=== PATIENT | male | born 1945 | race Caucasian/White ===

== ENCOUNTER 2020-06-11 15:13 | Inpatient (IN) | payer OTHER ==
[2020-06-11] MEDS ORDERED: predniSONE 20 MG TAB ONE (23:03)
[2020-06-11] MEDS ORDERED: IPRATROPIUM BROM 0.5MG/2.5ML ONE (23:03)
[2020-06-11] MEDS ORDERED: ALBUTEROL 2.5 MG/3 ML NEB SOL ONE (23:04)
--- NOTE | 2020-06-12 00:11 | ER ---
Nurse's Notes [facility] Name: Mal Guaman Age: 75 yrs Sex: Male : 1945 Arrival Date: 06/11/2020 Time: 15:19 Bed 13 Private MD: Diagnosis: Chronic obstructive pulmonary disease, unspecified;Congestive heart failure Presentation: 06/11 15:45 Chief complaint: EMS states: Electricity went out last night. Hospital bed was stuck in ss flat position. Pt c/o increased shortness of breath and O2 tank was almost out. Pt feels better after sitting up. Coronavirus screen: Client denies travel out of the [place] in the last 14 days. Ebola Screen: Patient denies exposure to infectious person. Patient denies travel to an Ebola-affected area in the 21 days before illness onset. Initial Sepsis Screen: Does the patient have a suspected source of infection? No. Patient's initial sepsis screen is negative. Risk Assessment: Do you want to hurt yourself or someone else? Patient reports no desire to harm self or others. Onset of symptoms was June 11, 2020. 15:45 Method Of Arrival: EMS: [facility] 15:45 Acuity: JOCY 3 ss Historical: - Allergies: 15:49 No Known Allergies; ss - PMHx: 15:49 COPD; CHF; Hypertension; ss - Immunization history:: Adult Immunizations up to date. - Social history:: Smoking status: Patient/guardian denies using tobacco, the patient reports quitting approximately 9 years ago. Screenin:00 Abuse screen: Denies threats or abuse. Nutritional screening: No deficits noted. em Tuberculosis screening: No symptoms or risk factors identified. Fall Risk None identified. Assessment: 21:00 Reassessment: pt ran out of O2 in the lobby, replaced O2 tank, noted 82% RA, pt reports em feeling better with O2 at 3 LPM, 99% SPO2. 21:25 General: Appears in no apparent distress. comfortable, Behavior is calm, cooperative, em appropriate for age. Pain: Denies pain. Neuro: Level of Consciousness is awake, alert, obeys commands, Oriented to person, place, time, situation. Cardiovascular: Capillary refill < 3 seconds Patient's skin is warm and dry. Respiratory: Reports shortness of breath on exertion Airway is patent Respiratory effort is even, unlabored, Respiratory pattern is regular, symmetrical, reports he wears O2 daily, denies chest pain. Derm: Skin is intact, is healthy with good turgor, Skin is pink, warm \T\ dry. Musculoskeletal: Range of motion: intact in all extremities. 23:00 Reassessment: Patient appears in no apparent distress at this time. Patient and/or em family updated on plan of care and expected duration. Pain level reassessed. Patient is alert, oriented x 3, equal unlabored respirations, skin warm/dry/pink. Vital Signs: 15:49 BP 157 / 66; Pulse 93; Resp 24; Temp 97.2(TE); Pulse Ox 100% on 3 lpm NC; Weight 66.68 em kg; Height 5 ft. 6 in. (167.64 cm); Pain 0/10; 21:00 Pulse Ox 82% on R/A; em 06/12 00:45 BP 119 / 54; Pulse 84; Resp 18; Pulse Ox 100% on 3 lpm NC; em 06/11 15:49 Body Mass Index 23.73 (66.68 kg, 167.64 cm) em ED Course: 06/11 15:19 Patient arrived in ED. sv 15:47 Triage completed. ss 15:49 Arm band placed on right wrist. ss 21:00 Patient has correct armband on for positive identification. em 21:29 Julian Barragan NP is PHCP. pm1 21:29 Rashel Kimbrough MD is Attending Physician. pm1 22:20 Jsoué Rowley, MELANIE is Primary Nurse. em 22:21 Chest Single View XRAY In Process Unspecified. EDMS 23:00 COVID swab sent to lab. sg 23:50 Initial lab(s) drawn, by wa, sent to lab. Inserted saline lock: 22 gauge in left em antecubital area, using aseptic technique. Blood collected. 06/12 00:10 Kar Mcgarry DO is Hospitalizing Provider. pm1 01:32 No provider procedures requiring assistance completed. Patient admitted, IV remains in em place. Administered Medications: 06/11 22:59 Drug: Albuterol - atroVENT (3:1) (2.5 mg - 0.5 mg) 3 ml Route: Nebulizer; 06/12 01:24 Follow up: Response: No adverse reaction em 06/11 22:59 Drug: predniSONE 60 mg Route: PO; 06/12 01:24 Follow up: Response: No adverse reaction em Outcome: 00:10 Decision to Hospitalize by Provider. pm1 01:32 Admitted to Med/surg accompanied by nurse, via wheelchair, room 217, with oxygen, with em chart, Report called to MELANIE Silva 01:32 Condition: good 01:32 Instructed on the need for admit, Demonstrated understanding of instructions. 01:35 Patient left the ED. Signatures: Dispatcher [employer] Dayanna Verma RN MELANIE Liban Harrell RN RN sg Josué Rowley RN RN em Sima Darden RN RN ss Julian Barragan, [employer]LLAND CARPET INSTALLER HELPER pm1 Corrections: (The following items were deleted from the chart) 06/11 23:29 15:49 BP 157 / 66; Pulse 93bpm; Resp 24bpm; Pulse Ox 100% RA; Temp 97.2F Temporal; em 66.68 kg; Height 5 ft. 6 in.; BMI: 23.7; Pain 0/10; ss
--- NOTE | 2020-06-12 00:11 | EDPHYS ---
Physician Documentation [facility] Name: Mal Guaman Age: 75 yrs Sex: Male : 1945 Arrival Date: 06/11/2020 Time: 15:19 Bed 13 Private MD: ED Physician Rashel Kimbrough HPI: 06/11 22:10 This 75 yrs old Male presents to ER via EMS with complaints of needs O2. pm1 22:10 Onset: The symptoms/episode began/occurred last night. Associated signs and symptoms: pm1 Pertinent negatives: chest pain, cough, fever. Patient is oxygen dependent COPD, CHF. Patient ran out of oxygen last night and was not able to use his CPAP with nebulizer due loss of electricity. Patient presenting with shortness of breath that has returned to his baseline with supplemental oxygen in the ER. He reports that the earliest he will be able to get oxygen is 4-5 days per supply company. Historical: - Allergies: 15:49 No Known Allergies; ss - PMHx: 15:49 COPD; CHF; Hypertension; ss - Immunization history:: Adult Immunizations up to date. - Social history:: Smoking status: Patient/guardian denies using tobacco, the patient reports quitting approximately 9 years ago. ROS: 22:10 Constitutional: Negative for fever, chills, and weight loss. pm1 22:10 Abdomen/GI: Negative for abdominal pain, nausea, vomiting, diarrhea, and constipation, Back: Negative for injury and pain, MS/Extremity: Negative for injury and deformity, Skin: Negative for injury, rash, and discoloration. 22:10 Neuro: Negative for headache, weakness, numbness, tingling, and seizure. 22:10 Cardiovascular: Negative for chest pain, palpitations. 22:10 Respiratory: Positive for cough, with no reported sputum, shortness of breath. Exam: 22:10 Constitutional: This is a well developed, well nourished patient who is awake, alert, pm1 and in no acute distress. Head/Face: Normocephalic, atraumatic. 22:10 Back: No spinal tenderness. No costovertebral tenderness. Full range of motion. Skin: Warm, dry with normal turgor. Normal color with no rashes, no lesions, and no evidence of cellulitis. MS/ Extremity: Pulses equal, no cyanosis. Neurovascular intact. Full, normal range of motion. 22:10 Cardiovascular: Exam negative for acute changes, Rate: normal, Rhythm: regular, Pulses: no pulse deficits are appreciated. 22:10 Respiratory: Exam negative for acute changes, respiratory distress, rhonchi, wheezing. 22:10 Neuro: Exam negative for acute changes, Orientation: is normal, Mentation: is normal, Motor: is normal, moves all fours. Vital Signs: 15:49 BP 157 / 66; Pulse 93; Resp 24; Temp 97.2(TE); Pulse Ox 100% on 3 lpm NC; Weight 66.68 em kg; Height 5 ft. 6 in. (167.64 cm); Pain 0/10; 21:00 Pulse Ox 82% on R/A; em 06/12 00:45 BP 119 / 54; Pulse 84; Resp 18; Pulse Ox 100% on 3 lpm NC; em 06/11 15:49 Body Mass Index 23.73 (66.68 kg, 167.64 cm) em MDM: 06/11 21:47 Patient medically screened. pm1 22:10 Data reviewed: vital signs. Data interpreted: Pulse oximetry: on room air is 100 %. pm1 Interpretation: normal. Counseling: I had a detailed discussion with the patient and/or guardian regarding: the historical points, exam findings, and any diagnostic results supporting the discharge/admit diagnosis, the need for further work-up and treatment in the hospital, Patient oxygen dependent and will not be able to get oxygen from his suppliers for the next 4-5 days due to weather. 06/11 22:02 Order name: CBC with Diff pm1 06/11 22:02 Order name: BMP; Complete Time: 00:57 pm1 06/11 22:02 Order name: Chest Single View XRAY pm1 06/11 22:03 Order name: CBC with Automated Diff; Complete Time: 00:57 EDMS 06/12 00:03 Order name: SARS-COV-2 RT PCR; Complete Time: 00:57 EDMS 06/12 00:36 Order name: Misc. Order: obtain and document room air sats please; Complete Time: 00:48 la1 Administered Medications: 22:59 Drug: Albuterol - atroVENT (3:1) (2.5 mg - 0.5 mg) 3 ml Route: Nebulizer; 06/12 01:24 Follow up: Response: No adverse reaction em 06/11 22:59 Drug: predniSONE 60 mg Route: PO; 06/12 01:24 Follow up: Response: No adverse reaction em Disposition: 02:01 Co-signature as Attending Physician, Rashel Kimbrough MD I agree with the assessment and kdr plan of care. Disposition: 06/12/20 00:10 Hospitalization ordered by Kar Mcgarry for Observation. Preliminary diagnosis are Chronic obstructive pulmonary disease, unspecified, Congestive heart failure. - Bed requested for Telemetry/MedSurg (observation). - Status is Observation. sg - Condition is Stable. - Problem is new. - Symptoms have improved. Signatures: Dispatcher [employer] EDSD Kemi Pritchett RN RN Liban Harrell RN RN sg Rittger, Kevin, MD MD [facility] Sima Darden RN RN ss Severiano Riddle, SECONDARY TEACHER-C SECONDARY TEACHER-Cla1 Julian Barragan, MACHINE TECHNICIAN MACHINE TECHNICIAN pm1 Josué Rowley RN em Corrections: (The following items were deleted from the chart) 06/11 23:10 22:46 CORONAVIRUS+MR.LAB.BRZ ordered. [facility] EDSD 06/12 00:25 00:10 Hospitalization Ordered by Kar Mcgarry DO for Observation. Preliminary mw diagnosis is Chronic obstructive pulmonary disease, unspecified; Congestive heart failure. Bed requested for Telemetry/MedSurg (observation). Status is Observation. Condition is Stable. Problem is new. Symptoms have improved. pm1 01:35 00:25 06/12/2020 00:10 Hospitalization Ordered by Kar Mcgarry DO for Observation. sg Preliminary diagnosis is Chronic obstructive pulmonary disease, unspecified; Congestive heart failure. Bed requested for Telemetry/MedSurg (observation). Status is Observation. Condition is Stable. Problem is new. Symptoms have improved. mw
[2020-06-12 00:15] LABS: Absolute Lymphocytes (CBC) 1.1 K/uL (0.7-4.9); Basophils % 0.8 % (0-1.3); Hematocrit 36.7 % (39.6-49.0); MPV 8.5 fL (7.6-11.3); RBC Red Blood Cell Count 4.36 M/uL (4.33-5.43)
[2020-06-12 00:24] LABS: Potassium 5.5 mmol/L (3.5-5.1)
--- NOTE | 2020-06-12 00:49 | P.HP ---
Certification for Inpatient Patient admitted to: Observation With expected LOS: <2 Midnights Patient will require the following post-hospital care: None Practitioner: I am a practitioner with admitting privileges, knowledge of patient current condition, hospital course, and medical plan of care. Services: Services provided to patient in accordance with Admission requirements found in Title 42 Section 412.3 of the Code of Federal Regulations <Severiano Riddle - Last Filed: 06/12/20 00:43> Patient History Date of Service: 06/12/20 Primary Care Provider: Dr. Brooks? Reason for admission: COPD with hypoxia History of Present Illness: 75-year-old male with history of severe COPD on home oxygen therapy, heart failure preserved ejection fraction, hypertension, hyperlipidemia presents emergency department for shortness of breath. Patient reports that he has a home oxygen concentrator but his power went out and he has been trying to supplement with oxygen canisters but ran out, patient reports that he uses up to 4 canisters of oxygen per day. Patient tachypneic even with oxygen on. Patient states he will take likely 3-4 days until his company can deliver more oxygen. Basic workup performed in ED significant for mildly elevated potassium 5.5. Patient taking spironolactone. Will continue home medications, provide with supplemental oxygen, likely discharge hopefully tomorrow if power returns. - Past Medical/Surgical History -: Severe COPD on home oxygen -: Chronic heart failure preserved ejection fraction -: Hypertension -: Hyperlipidemia -: BPH -: none Psychosocial/ Personal History: Patient lives at home with his daughter - Family History Family History: Reviewed- Non-Contributory - Social History Smoking Status: Former smoker Alcohol use: No CD- Drugs: No Caffeine use: Yes Place of Residence: Home <Severiano Riddle - Last Filed: 06/12/20 00:43> Date of Service: 06/23/20 <Mal Magana - Last Filed: 06/23/20 14:57> Review of Systems 10-point ROS is otherwise unremarkable Respiratory: Cough, Shortness of Breath, SOB with Excertion <Severiano Riddle - Last Filed: 06/12/20 00:43> Physical Examination - Physical Exam General: Alert, In no apparent distress, Oriented x3 HEENT: Atraumatic, Normocephalic, PERRLA Neck: Supple Respiratory: Diminished (Bilaterally) Cardiovascular: Regular rate/rhythm, Normal S1 S2 Capillary refill: <2 Seconds Gastrointestinal: Normal bowel sounds, Soft and benign Musculoskeletal: No contractures, No erythema, No tenderness Integumentary: No significant lesion, No tenderness/swelling, No erythema Neurological: Normal speech, Normal strength at 5/5 x4 extr, Normal tone, Sensation intact - Studies Laboratory Data (last 24 hrs) 06/11/20 23:50: Sodium 146 H, Potassium 5.5 H, BUN 26 H, Creatinine 1.27, Glucose 147 H 06/11/20 23:50: WBC 10.30, Hgb 11.2 L, Hct 36.7 L, Plt Count 219 <Severiano Riddle - Last Filed: 06/12/20 00:43> Assessment and Plan - Plan Assessment End-stage COPD on home oxygen Chronic heart failure preserved ejection fraction Mild hyperkalemia Hypertension, hyperlipidemia, BPH Plan End-stage COPD on home oxygen: Continue home medications, p.r.n. inhalers/nebulizers. Provided with supplemental oxygen as needed, daily room air saturations, discharge once patient either saturating well without oxygen or his power is turned on and has oxygen concentrator/oxygen delivery to his house. DVT prophylaxis Lovenox 40 mg subcutaneous once daily. Chronic heart failure preserved ejection fraction: Appears stable at this time, continue Lasix. Mild hyperkalemia: Likely related to spironolactone, hold spironolactone. Recheck chemistry with morning labs. Hypertension, hyperlipidemia, BPH: Appears stable at this time, continue home meds. Discharge Plan: Home Plan to discharge in: 24 Hours - Advance Directives Does patient have a Living Will: No Does patient have a Durable POA for Healthcare: No - Code Status/Comfort Care Code Status Assessed: Yes (Full code) Critical Care: No Time Spent Managing Pts Care (In Minutes): 55 <Severiano Riddle - Last Filed: 06/12/20 00:43> - Plan Plan of care reviewed and agree as noted above by Severiano Riddle. Continue steroids/nebs for COPD, oxygen supplementation <Mal Magana - Last Filed: 06/23/20 14:57>
[2020-06-12] MEDS ORDERED: SOD POLYSTYREN SUL 15 GM/60 ML UCUP PO ONE (01:57)
[2020-06-12] MEDS ORDERED: ALBUTEROL INHALER 60 PUFF/8 GM IH PRN (01:57)
[2020-06-12] MEDS ORDERED: ONDANSETRON 4 MG/2 ML VIAL IV PRN (01:57)
[2020-06-12] MEDS ORDERED: ACETAMINOPHEN 500 MG TAB PO PRN (01:57)
[2020-06-12 01:58] VITALS: BMI 41.1
[2020-06-12 04:49] LABS: Urine Appearance CLEAR; Urine Bilirubin NEGATIVE (NEG); Urine Blood NEGATIVE (NEG); Urine Color YELLOW; Urine Glucose NEGATIVE (NEG); Urine Protein NEGATIVE (NEG); Urine Urobilinogen 0.2 mg/dL (0.2-1.0); Urine pH 5.5 (5.0-7.0)
[2020-06-12 04:50] LABS: Urine Microscopic Reflex NO UMIC
--- NOTE | 2020-06-12 07:58 | RAD REPORT ---
EXAM DESCRIPTION: RAD - Chest Single View - 06/11/2020 10:21 pm CLINICAL HISTORY: SOB, decreased O2 saturation, history of COPD and CHF COMPARISON: None TECHNIQUE: AP portable chest image was obtained 06/11/2020 10:21 pm . FINDINGS: No peripheral mass or consolidations seen. Bilateral pericardial fat pads are present. Int erstitial markings are prominent with the baseline for the patient unknown. Heart and vasculature are normal. No measurable pleural effusion and no pneumothorax. No acute bony abnormality seen. No acute aortic findings suspected. IMPRESSION: No significant failure or volume overload. Interstitial pattern is prominent with the baseline unknown. A mild interstitial edema or infiltrate is still possible.
[2020-06-12] MEDS ORDERED: FUROSEMIDE 40 MG TABLET PO SCH (09:00)
[2020-06-12] MEDS: FLUTICASONE 50MCG NASAL SPRAY NAS SCH (09:47)
[2020-06-12] MEDS: ENOXAPARIN 40 MG/0.4 ML SQ SCH (09:47)
[2020-06-12] MEDS: FINASTERIDE 5 MG TAB PO SCH (09:48)
[2020-06-12] MEDS: lisinopriL 10 MG TAB PO SCH (09:48)
[2020-06-12] MEDS: ALBUTEROL 2.5 MG/3 ML NEB SOL NEB PRN (13:25)
[2020-06-12] MEDS: IPRATROPIUM BROM 0.5MG/2.5ML NEB PRN (13:25)
--- NOTE | 2020-06-12 16:48 | P.PN ---
Subjective Date of Service: 06/12/20 Primary Care Provider: Dr. Brooks? Chief Complaint: COPD with hypoxia Subjective: Improving (breathing more comfortably) Review of Systems 10-point ROS is otherwise unremarkable Physical Examination - Vital Signs Temperature: 96.4 F Blood Pressure: 127/58 Pulse: 88 Respirations: 19 Pulse Ox (%): 95 - Studies Laboratory Data (last 24 hrs) 06/11/20 23:50: Sodium 146 H, Potassium 5.5 H, BUN 26 H, Creatinine 1.27, Glucose 147 H 06/11/20 23:50: WBC 10.30, Hgb 11.2 L, Hct 36.7 L, Plt Count 219 Assessment & Plan Physician Review Additional Text: Physical Exam: Gen: AAOx3, NAD HEENT: sclera anicteric Pulm: Diminished (Bilaterally), mild wheeze CV: Regular rate/rhythm, no edema Abd: Normal bowel sounds, Soft and benign Msk: No erythema, No tenderness Neurological: Normal strength at 5/5 x4 extr Problem List End-stage COPD on home oxygen Chronic heart failure preserved ejection fraction Mild hyperkalemia Hypertension, hyperlipidemia, BPH End-stage COPD on home oxygen Continue home medications, p.r.n. inhalers/nebulizers. Provided with supplemental oxygen as needed, daily room air saturations, discharge once patient either saturating well without oxygen or his power is turned on and has oxygen concentrator/oxygen delivery to his house. Chronic heart failure preserved ejection fraction: Appears stable at this time, continue Lasix. Mild hyperkalemia: Likely related to spironolactone, hold spironolactone. Recheck chemistry with morning labs. Hypertension, hyperlipidemia, BPH: Appears stable at this time, continue home meds. Dispo: anticipate dc home in 24hrs, once improved and power is restored Time Spent Managing Pts Care (In Minutes): 35
[2020-06-12] MEDS ORDERED: TAMSULOSIN 0.4 MG SR CAP PO SCH (21:00)
[2020-06-12] MEDS: Budesonide/Formoterol Fumarate [Symbicort 160-4.5 Mcg Inhaler] 10.2 GM IH SCH (21:00)
[2020-06-12] MEDS: ATORVASTATIN 10 MG TAB PO SCH (21:36)
[2020-06-13 04:37] LABS: Hematocrit 30.4 % (39.6-49.0); MPV 8.2 fL (7.6-11.3); RBC Red Blood Cell Count 3.69 M/uL (4.33-5.43)
[2020-06-13 05:04] LABS: Magnesium 2.3 mg/dL (1.8-2.4); Potassium 4.2 mmol/L (3.5-5.1)
[2020-06-13] MEDS: FINASTERIDE 5 MG TAB PO SCH (08:47)
[2020-06-13] MEDS: lisinopriL 10 MG TAB PO SCH (08:47)
[2020-06-13] MEDS: TAMSULOSIN 0.4 MG SR CAP PO SCH (08:47)
[2020-06-13] MEDS: ENOXAPARIN 40 MG/0.4 ML SQ SCH (08:48)
[2020-06-13] MEDS: FLUTICASONE 50MCG NASAL SPRAY NAS SCH (08:48)
[2020-06-13] MEDS: Budesonide/Formoterol Fumarate [Symbicort 160-4.5 Mcg Inhaler] 10.2 GM IH SCH ×2 (09:00→21:00)
[2020-06-13] MEDS ORDERED: acetaZOLAMIDE 250 MG TAB PO SCH (09:00)
--- NOTE | 2020-06-13 09:19 | P.PN ---
Subjective Date of Service: 06/13/20 Primary Care Provider: Dr. Brooks? Chief Complaint: COPD with hypoxia Subjective: Improving (feeling well. requesting pt for weakness and deconditioning.) Physical Examination - Vital Signs Temperature: 97.1 F Blood Pressure: 142/66 Pulse: 86 Respirations: 20 Pulse Ox (%): 98 Assessment And Plan Physician Review: Patient Assessed, Agree with Above Assessment and Plan Physician Review Additional Text: Physical Exam: Gen: AAOx3, NAD HEENT: sclera anicteric Pulm: Diminished (Bilaterally), mild wheeze CV: Regular rate/rhythm, no edema Abd: Normal bowel sounds, Soft and benign Msk: No erythema, No tenderness Neurological: alert, oriented x3. no focal deficit. Problem List End-stage COPD on home oxygen Chronic heart failure preserved ejection fraction Mild hyperkalemia Hypertension, hyperlipidemia, BPH End-stage COPD on home oxygen Continue home medications, p.r.n. inhalers/nebulizers. Provided with supplemental oxygen as needed, daily room air saturations, issues with power at home is still a barrier for discharge. we will follow closely. Chronic heart failure preserved ejection fraction: Appears stable at this time, continue Lasix therapy at present dose. Mild hyperkalemia: potassium is still elevated at 5.0 . we will hold spironolactone and follow closely. Hypertension, hyperlipidemia, BPH: BP reads are stable, we will continue home meds. we will continue statin therapy and tamsulosin. Deconditioning: PT ordered for deconditioning. Dispo: anticipate dc home once power is restored at his residence.
[2020-06-13] MEDS: ATORVASTATIN 10 MG TAB PO SCH (21:58)
[2020-06-14] MEDS: IPRATROPIUM BROM 0.5MG/2.5ML NEB PRN (01:50)
[2020-06-14] MEDS: ALBUTEROL 2.5 MG/3 ML NEB SOL NEB PRN (01:50)
[2020-06-14 04:57] LABS: Potassium 4.9 mmol/L (3.5-5.1)
--- NOTE | 2020-06-14 06:45 | P.PN ---
Subjective Date of Service: 06/14/20 Primary Care Provider: Dr. Brooks. Chief Complaint: COPD with hypoxia Physical Examination - Vital Signs Temperature: 97.4 F Blood Pressure: 140/59 Pulse: 77 Respirations: 17 Pulse Ox (%): 96 Assessment And Plan Physician Review: Patient Assessed, Agree with Above Assessment and Plan Physician Review Additional Text: Physical Exam: Gen: AAOx3, NAD HEENT: sclera anicteric Pulm: Diminished (Bilaterally), mild wheeze CV: Regular rate/rhythm, no edema Abd: Normal bowel sounds, Soft and benign Msk: No erythema, No tenderness Neurological: alert, oriented x3. no focal deficit. Problem List End-stage COPD on home oxygen Chronic heart failure preserved ejection fraction Mild hyperkalemia Hypertension, hyperlipidemia, BPH End-stage COPD on home oxygen Continue home medications, p.r.n. inhalers/nebulizers. Provided with supplemental oxygen as needed, daily room air saturations, issues with power at home is still a barrier for discharge. we will follow closely. Chronic heart failure preserved ejection fraction: Appears stable at this time, continue Lasix therapy at present dose. Mild hyperkalemia: potassium is still borderline elevated at 4.9 . we will continue to hold spironolactone and follow closely. Hypertension, hyperlipidemia, BPH: BP reads are stable, we will continue home meds. we will continue statin therapy and tamsulosin. Deconditioning: PT ordered for deconditioning. Elevated CO2: Pt has persistently elevated CO2 on labs. CPAP started for management of hypercapnia as he uses equipment at home. we will monitor closely. acetazolamide started for CO2 wasting. If elevated CO persists, we will obtain ABG to evaluate further. Dispo: anticipate dc home once power is restored at his residence.
[2020-06-14] MEDS: Budesonide/Formoterol Fumarate [Symbicort 160-4.5 Mcg Inhaler] 10.2 GM IH SCH ×2 (09:00→21:00)
[2020-06-14] MEDS: TAMSULOSIN 0.4 MG SR CAP PO SCH (09:07)
[2020-06-14] MEDS: acetaZOLAMIDE 250 MG TAB PO SCH (09:07)
[2020-06-14] MEDS: lisinopriL 10 MG TAB PO SCH (09:07)
[2020-06-14] MEDS: FINASTERIDE 5 MG TAB PO SCH (09:08)
[2020-06-14] MEDS: ENOXAPARIN 40 MG/0.4 ML SQ SCH (09:08)
[2020-06-14] MEDS: FLUTICASONE 50MCG NASAL SPRAY NAS SCH (09:09)
[2020-06-14] MEDS: ATORVASTATIN 10 MG TAB PO SCH (21:21)
--- NOTE | 2020-06-15 08:11 | P.PN ---
Subjective Date of Service: 06/15/20 Primary Care Provider: Dr. Brooks. Chief Complaint: COPD with hypoxia Physical Examination - Vital Signs Temperature: 97.6 F Blood Pressure: 130/61 Pulse: 76 Respirations: 18 Pulse Ox (%): 96 Assessment And Plan Physician Review: Patient Assessed, Agree with Above Assessment and Plan Physician Review Additional Text: Physical Exam: Gen: AAOx3, NAD HEENT: sclera anicteric Pulm: Diminished (Bilaterally), mild wheeze CV: Regular rate/rhythm, no edema Abd: Normal bowel sounds, Soft and benign Msk: No erythema, No tenderness Neurological: alert, oriented x3. no focal deficit. Problem List End-stage COPD on home oxygen Chronic heart failure preserved ejection fraction Mild hyperkalemia Hypertension, hyperlipidemia, BPH End-stage COPD on home oxygen Continue home medications, p.r.n. inhalers/nebulizers. Provided with supplemental oxygen as needed, daily room air saturations, Home power restored however he continues to be drowsy and have elevated CO2. we will monitor. Chronic heart failure preserved ejection fraction: Appears stable at this time, continue Lasix therapy at present dose. Mild hyperkalemia: potassium is still borderline elevated at 4.9 . we will continue to hold spironolactone and follow closely. Hypertension, hyperlipidemia, BPH: BP reads are stable, we will continue home meds. we will continue statin therapy and tamsulosin. Deconditioning: PT ordered for deconditioning. Elevated CO2: Pt has persistently elevated CO2 on labs despite diamox use. CPAP started for management of hypercapnia as he uses equipment at home. we will monitor closely. we will obtain ABG to evaluate further. Dispo: anticipate dc home once he is deemed clinically stable.
[2020-06-15 08:13] LABS: Potassium 4.7 mmol/L (3.5-5.1)
[2020-06-15] MEDS: TAMSULOSIN 0.4 MG SR CAP PO SCH (09:00)
[2020-06-15] MEDS: Budesonide/Formoterol Fumarate [Symbicort 160-4.5 Mcg Inhaler] 10.2 GM IH SCH ×2 (09:00→20:38)
[2020-06-15] MEDS: FLUTICASONE 50MCG NASAL SPRAY NAS SCH (09:00)
[2020-06-15] MEDS: acetaZOLAMIDE 250 MG TAB PO SCH (09:00)
[2020-06-15] MEDS: FINASTERIDE 5 MG TAB PO SCH (09:00)
[2020-06-15] MEDS: lisinopriL 10 MG TAB PO SCH (09:00)
[2020-06-15] MEDS: ENOXAPARIN 40 MG/0.4 ML SQ SCH (09:00)
[2020-06-15 15:38] LABS: Blood O2 Saturation 98.6 % (92-98.5)
[2020-06-15 15:39] LABS: Arterial Blood Carboxyhemoglob 0.8 % (0-1.5)
[2020-06-15] MEDS: ATORVASTATIN 10 MG TAB PO SCH (20:39)
[2020-06-16] MEDS: Budesonide/Formoterol Fumarate [Symbicort 160-4.5 Mcg Inhaler] 10.2 GM IH SCH (09:00)
[2020-06-16] MEDS: FLUTICASONE 50MCG NASAL SPRAY NAS SCH (09:00)
[2020-06-16] MEDS: ENOXAPARIN 40 MG/0.4 ML SQ SCH (09:08)
[2020-06-16] MEDS: acetaZOLAMIDE 250 MG TAB PO SCH ×2 (09:09→23:32)
[2020-06-16] MEDS: lisinopriL 10 MG TAB PO SCH (09:09)
[2020-06-16] MEDS: TAMSULOSIN 0.4 MG SR CAP PO SCH (09:09)
[2020-06-16] MEDS: FINASTERIDE 5 MG TAB PO SCH (09:11)
[2020-06-16] MEDS: ARFORMOTEROL TARTRATE 15 MCG/2 ML VIAL.NEB NEB SCH ×2 (10:15→20:45)
--- NOTE | 2020-06-16 10:21 | P.PN ---
Subjective Date of Service: 06/16/20 (Hospitalist) Primary Care Provider: Dr. Rothman Chief Complaint: Respiratory failure Patient is still short of breath hypoxic has severe COPD uses BiPAP at home compliant with therapy ran out of power Review of Systems General: Weakness Respiratory: Shortness of Breath Physical Examination - Vital Signs Temperature: 98.4 F Blood Pressure: 132/62 Pulse: 91 Respirations: 20 Pulse Ox (%): 96 - Physical Exam General: Moderate distress Respiratory: Diminished, Expiratory wheezes Cardiovascular: Normal S1 S2, Edema Assessment & Plan - Problems (Diagnosis) (1) Respiratory failure Current Visit: Yes Status: Acute Plan: Patient is 75 years of age with severe COPD sleep apnea admitted with respiratory failure his very hypoxic hypercarbic elevated bicarbonate maximize bronchodilator therapy for now resume BiPAP repeat ABGs continue with Diamox at spironolactone history of diastolic heart failure I have added some nebulize bronchodilators scheduled basis added steroids patient has a general accountant and export clerk Qualifiers: Respiratory failure complication: hypoxia and hypercapnia Physician Review: Patient Assessed, Agree with Above Assessment and Plan
[2020-06-16] MEDS: METHYLPREDNISOLONE 125 MG INJ IV SCH ×2 (11:35→22:02)
[2020-06-16] MEDS: SPIRONOLACTONE 25 MG TABLET PO SCH (11:36)
[2020-06-16] MEDS: IPRATROPIUM BROM 0.5MG/2.5ML NEB SCH ×2 (13:55→20:45)
[2020-06-16] MEDS: ALBUTEROL 2.5 MG/3 ML NEB SOL NEB PRN (13:55)
[2020-06-16 14:30] LABS: Arterial Blood Carboxyhemoglob 1.3 % (0-1.5); Blood Gas Oxyhemoglobin 84.1 % (94-97); Blood O2 Saturation 86.7 % (92-98.5)
[2020-06-16] MEDS ORDERED: ACETAZOLAMIDE 500 MG IV IV SCH (21:00)
[2020-06-16] MEDS: ATORVASTATIN 10 MG TAB PO SCH (22:02)
[2020-06-17] MEDS: IPRATROPIUM BROM 0.5MG/2.5ML NEB SCH ×4 (02:30→19:38)
[2020-06-17 06:54] LABS: Potassium 4.3 mmol/L (3.5-5.1)
[2020-06-17] MEDS: FLUTICASONE 50MCG NASAL SPRAY NAS SCH (09:00)
[2020-06-17] MEDS: acetaZOLAMIDE 250 MG TAB PO SCH ×2 (09:00→21:18)
[2020-06-17] MEDS: ARFORMOTEROL TARTRATE 15 MCG/2 ML VIAL.NEB NEB SCH ×2 (09:18→19:38)
--- NOTE | 2020-06-17 09:25 | P.PN ---
Subjective Date of Service: 06/17/20 (Hospitalist) Primary Care Provider: Dr. Brooks. Chief Complaint: Respiratory failure No change patient is on BiPAP all rating well saturation satisfactory he is alert responsive some desaturation last night Review of Systems General: Weakness Respiratory: Shortness of Breath Physical Examination - Vital Signs Temperature: 97.9 F Blood Pressure: 161/72 Pulse: 57 Respirations: 20 Pulse Ox (%): 96 - Physical Exam General: Alert, Cooperative, Mild distress Respiratory: Clear to auscultation bilaterally, Diminished, Expiratory wheezes Cardiovascular: No edema, Normal S1 S2 Gastrointestinal: Normal bowel sounds, Soft and benign Musculoskeletal: No clubbing, No swelling Assessment & Plan - Problems (Diagnosis) (1) Respiratory failure Current Visit: Yes Status: Acute Plan: Patient admitted with respiratory failure I suspect he has baseline hypercapnia doing better nasal cannula to a sat of 90% and nasal cannula oxygen BUN is slightly elevated creatinine has improved patient's edema has also declined he has a BiPAP at home titrate sat to 90% possible discharge tomorrow tsh is normal reduce dose of prednisone Qualifiers: Respiratory failure complication: hypoxia and hypercapnia Physician Review: Patient Assessed, Agree with Above Assessment and Plan Physician Review Additional Text: Physical Exam: Gen: AAOx3, NAD HEENT: sclera anicteric Pulm: Diminished (Bilaterally), mild wheeze CV: Regular rate/rhythm, no edema Abd: Normal bowel sounds, Soft and benign Msk: No erythema, No tenderness Neurological: alert, oriented x3. no focal deficit. Problem List End-stage COPD on home oxygen Chronic heart failure preserved ejection fraction Mild hyperkalemia Hypertension, hyperlipidemia, BPH End-stage COPD on home oxygen Continue home medications, p.r.n. inhalers/nebulizers. Provided with supplemental oxygen as needed, daily room air saturations, Home power restored however he continues to be drowsy and have elevated CO2. we will monitor. Chronic heart failure preserved ejection fraction: Appears stable at this time, continue Lasix therapy at present dose. Mild hyperkalemia: potassium is still borderline elevated at 4.9 . we will continue to hold spironolactone and follow closely. Hypertension, hyperlipidemia, BPH: BP reads are stable, we will continue home meds. we will continue statin therapy and tamsulosin. Deconditioning: PT ordered for deconditioning. Elevated CO2: Pt has persistently elevated CO2 on labs despite diamox use. CPAP started for management of hypercapnia as he uses equipment at home. we will monitor closely. we will obtain ABG to evaluate further. Dispo: anticipate dc home once he is deemed clinically stable.
[2020-06-17] MEDS: lisinopriL 10 MG TAB PO SCH (10:11)
[2020-06-17] MEDS: TAMSULOSIN 0.4 MG SR CAP PO SCH (10:11)
[2020-06-17] MEDS: FINASTERIDE 5 MG TAB PO SCH (10:12)
[2020-06-17] MEDS: SPIRONOLACTONE 25 MG TABLET PO SCH (10:12)
[2020-06-17] MEDS: ENOXAPARIN 40 MG/0.4 ML SQ SCH (10:13)
[2020-06-17] MEDS: METHYLPREDNISOLONE 40 MG INJ IV SCH (21:18)
[2020-06-17] MEDS: ATORVASTATIN 10 MG TAB PO SCH (21:18)
[2020-06-18] MEDS: IPRATROPIUM BROM 0.5MG/2.5ML NEB SCH ×4 (02:20→19:50)
[2020-06-18] MEDS: ARFORMOTEROL TARTRATE 15 MCG/2 ML VIAL.NEB NEB SCH ×2 (08:04→19:50)
[2020-06-18] MEDS: FINASTERIDE 5 MG TAB PO SCH (10:23)
[2020-06-18] MEDS: SPIRONOLACTONE 25 MG TABLET PO SCH (10:23)
[2020-06-18] MEDS: acetaZOLAMIDE 250 MG TAB PO SCH ×2 (10:23→21:20)
[2020-06-18] MEDS: TAMSULOSIN 0.4 MG SR CAP PO SCH (10:23)
[2020-06-18] MEDS: lisinopriL 10 MG TAB PO SCH (10:24)
[2020-06-18] MEDS: ENOXAPARIN 40 MG/0.4 ML SQ SCH (10:24)
[2020-06-18] MEDS: FLUTICASONE 50MCG NASAL SPRAY NAS SCH (10:24)
[2020-06-18] MEDS: METHYLPREDNISOLONE 40 MG INJ IV SCH ×2 (10:37→21:20)
[2020-06-18 14:36] VITALS: O2SAT 97
[2020-06-18 18:15] VITALS: BP 133/63; TEMP 98.2
[2020-06-18] MEDS: ATORVASTATIN 10 MG TAB PO SCH (21:20)
--- NOTE | 2020-07-05 15:31 | P.DS ---
Discharge Date: 06/18/20 Primary Care Provider: Dr. Brooks. Disposition: TRANSFER TO INPATIENT REHAB Discharge Condition: GOOD Reason for Admission: Respiratory failure Brief History of Present Illness: Patient is a 75-year-old male with history of severe COPD on home oxygen therapy, heart failure preserved ejection fraction, hypertension, hyperlipidemia presents emergency department for shortness of breath. Patient reports that he has a home oxygen concentrator but his power went out and he has been trying to supplement with oxygen canisters but ran out, patient reports that he uses up to 4 canisters of oxygen per day. Patient tachypneic even with oxygen on. Patient states he will take likely 3-4 days until his company can deliver more oxygen. Basic workup performed in ED significant for mildly elevated potassium 5.5. Patient taking spironolactone. Will continue home medications, provide with supplemental oxygen, likely discharge hopefully tomorrow if power returns. Hospital Course: Arrange for home oxygen and are planning to discharge patient home with outpatient follow-up with Pulmonary in 1-2 weeks. Return to the emergency room if symptoms worsen. Vital Signs/Physical Exam: Temp Pulse Resp BP Pulse Ox 98.2 F 78 28 H 133/63 97 06/18/20 16:00 06/18/20 16:00 06/18/20 16:00 06/18/20 16:00 06/18/20 16:00 General: Alert, In no apparent distress, Oriented x3 Laboratory Data at Discharge: WBC 8.90 K/uL (4.3-10.9) 06/13/20 04:24 Hgb 9.7 g/dL (13.6-17.9) L 06/13/20 04:24 Hct 30.4 % (39.6-49.0) L D 06/13/20 04:24 Plt Count 186 K/uL (152-406) 06/13/20 04:24 Sodium 145 mmol/L (136-145) 06/17/20 06:13 Potassium 4.3 mmol/L (3.5-5.1) 06/17/20 06:13 BUN 54 mg/dL (7-18) H 06/17/20 06:13 Creatinine 1.20 mg/dL (0.55-1.3) 06/17/20 06:13 Glucose 163 mg/dL (74-106) H 06/17/20 06:13 Magnesium 2.3 mg/dL (1.8-2.4) 06/13/20 04:24 Home Medications: Albuterol Sulfate [Ventolin Hfa] 1 inh IH QIDP PRN 06/12/20 Budesonide/Formoterol Fumarate [Symbicort 160-4.5 Mcg Inhaler] 1 inh IH BID 06/12/20 Finasteride [Proscar*] 5 mg PO DAILY 06/12/20 Ipratropium/Albuterol Sulfate [Iprat-Albut 0.5-3(2.5) mg/3 ml] 1 aer NEB QIDP PRN 06/12/20 Lisinopril [Zestril] 10 mg PO DAILY 06/12/20 Tamsulosin [Flomax*] 0.4 mg PO DAILY 06/12/20 Furosemide [Lasix*] 40 mg PO DAILY 06/13/20 Albuterol Inhaler [Ventolin Inhaler*] 2 puff IH Q6H PRN #1 hfa.aer.ad 06/18/20 Arformoterol Tartrate [Brovana] 15 mcg NEB BIDRESP #60 vial.neb 06/18/20 Atorvastatin Calcium [Lipitor*] 10 mg PO BEDTIME #30 tab 06/18/20 Finasteride [Proscar*] 5 mg PO DAILY #30 tab 06/18/20 Spironolactone [Aldactone*] 25 mg PO DAILY #30 tab 06/18/20 acetaZOLAMIDE [Diamox*] 250 mg PO BID #60 tab 06/18/20 lisinopriL [Prinivil*] 10 mg PO DAILY #30 tab 06/18/20 New Medications: Spironolactone [Aldactone*] 25 mg PO DAILY #30 tab Arformoterol Tartrate [Brovana] 15 mcg NEB BIDRESP #60 vial.neb acetaZOLAMIDE [Diamox*] 250 mg PO BID #60 tab Atorvastatin Calcium [Lipitor*] 10 mg PO BEDTIME #30 tab lisinopriL [Prinivil*] 10 mg PO DAILY #30 tab Finasteride [Proscar*] 5 mg PO DAILY #30 tab Albuterol Inhaler [Ventolin Inhaler*] 2 puff IH Q6H PRN #1 hfa.aer.ad PRN Reason: Shortness Of Breath Physician Discharge Instructions: OK TO DC IV AND DC HOME FOLLOW-UP WITH PRIMARY CARE PROVIDER IN 1-2 WEEKS FOLLOW-UP WITH CARDIOLOGY IN 1-2 WEEKS RETURN TO THE ER IF symptoms worsens CALL or TEXT DR. MOORE AT [phone] IF ANY QUESTIONS REGARDING HOSPITAL STAY. PLEASE CALL THE FLOOR AT [phone] IF ANY MEDICATION OR NURSING QUESTIONS. Diet: AHA Activity: Fall precautions Followup: NONE,NONE [Primary Care Provider] - Time spent managing pt's care (in minutes): 35
== END 2020-06-18 22:23 | DRG 291 ==
LOC: ER 15:13 → 2ND 06-12 01:27 → OBSVTOIN 06-13 14:00
PROVIDERS: ADMIT Internal Medicine Sleep Medicine; ATTEND Hospitalist
PROC: 5A09557 Assistance with Respiratory Ventilation, Greater than 96 Consecutive Hours, Continuous Positive Airway Pressure (ICD-10-PCS; principal; 2020-06-13)
DX: I11.0 Hypertensive heart disease with heart failure (principal); J96.21 Acute and chronic respiratory failure with hypoxia; I50.31 Acute diastolic (congestive) heart failure; N17.9 Acute kidney failure, unspecified; Z68.41 Body mass index [BMI] 40.0-44.9, adult; E66.01 Morbid (severe) obesity due to excess calories; J44.9 Chronic obstructive pulmonary disease, unspecified; E87.5 Hyperkalemia; N40.0 Benign prostatic hyperplasia without lower urinary tract symptoms; G47.30 Sleep apnea, unspecified; E78.5 Hyperlipidemia, unspecified; Z87.891 Personal history of nicotine dependence; Z99.81 Dependence on supplemental oxygen; Z20.822 Contact with and (suspected) exposure to COVID-19
CPT/HCPCS: 36415; 71045; 80048; 81003; 82805; 82947; 83735; 84443; 85025; 85027; 94640; 94660; 97110; 97161; 97530; 99285; G0378; J1120; J1650; J2920; J2930; J7512; J7605; U0003